=== PATIENT | female | born 1935 | race Caucasian/White ===

== ENCOUNTER 2020-08-26 19:06 | Emergency (ER) | payer MEDICARE, OTHER ==
--- NOTE | 2020-08-26 20:21 | EDM.PDOC ---
ED HPI GENERAL MEDICAL PROBLEM - General Chief Complaint: Lower Extremity Injury/Pain Stated Complaint: FALL, LEFT HIP PAIN Time Seen by Provider: 08/26/20 19:33 Source of Information: Reports: Patient, EMS, Family History Limitations: Reports: No Limitations - History of Present Illness INITIAL COMMENTS - FREE TEXT/NARRATIVE: Patient comes in with left hip injury after falling onto left hip after tripping. Was cooking in her kitchen in her apartment when this happened. Daughter lives next door to her in same building. Denies hitting head/LOC. Denies pain or injury to any other area, including head/neck/back/shoulders/arms/right lower limb. No abdominal pain. Left Hip Pain Score (Numeric/FACES): 4 - Related Data Allergies Allergy/AdvReac Type Severity Reaction Status Date / Time ampicillin Allergy Mild Weakness Verified 08/26/20 19:33 amoxicillin trihydrate Allergy Rash Verified 08/26/20 19:33 [From Augmentin] honey Allergy Difficulty Verified 08/26/20 19:33 Swallowing potassium clavulanate Allergy Rash Verified 08/26/20 19:33 [From Augmentin] Home Meds: Home Meds Potassium Chloride 10 meq PO DAILY 09/10/13 [History] carvediloL [Coreg] 25 mg PO BID 09/10/13 [History] hydroCHLOROthiazide [Hydrochlorothiazide] 25 mg PO DAILY 09/10/13 [History] Acetaminophen [Tylenol Extra Strength] 500 mg PO Q8H PRN 10/13/13 [History] Alendronate Sodium [Fosamax] 70 mg PO WEEKLY 08/26/20 [History] Apixaban [Eliquis] 2.5 mg PO DAILY 08/26/20 [History] Levothyroxine [Synthroid] 50 mcg PO DAILY 08/26/20 [History] Memantine HCl 5 mg PO DAILY 08/26/20 [History] atorvaSTATin [Lipitor] 10 mg PO DAILY 08/26/20 [History] Past Medical History HEENT History: Reports: Hard of Hearing, Impaired Vision Cardiovascular History: Reports: Blood Clots/VTE/DVT, High Cholesterol, Hyper tension Respiratory History: Reports: Asthma Gastrointestinal History: Reports: Chronic Diarrhea Genitourinary History: Reports: UTI, Recurrent [employer] History: Reports: Musculoskeletal History: Reports: Arthritis, Fracture, Osteoarthritis, Osteoporosis Neurological History: Reports: Other (See Below) Other Neuro History: mild cognitive impairment/short term memory loss Endocrine/Metabolic History: Reports: Diabetes, Type II, Hypothyroidism - Infectious Disease History Infectious Disease History: Reports: Measles, Mumps, Rubella - Past Surgical History HEENT Surgical History: Reports: Cataract Surgery Cardiovascular Surgical History: Reports: None Respiratory Surgical History: Reports: None GI Surgical History: Reports: Hernia, Abdominal Female Surgical History: Reports: None Endocrine Surgical History: Reports: None Neurological Surgical History: Reports: None Musculoskeletal Surgical History: Reports: Ganglion Cyst, Shoulder Surgery Dermatological Surgical History: Reports: None Social & Family History - Tobacco Use Tobacco Use Status *Q: Never Tobacco User - Caffeine Use Caffeine Use: Reports: Coffee, Tea - Recreational Drug Use Recreational Drug Use: No - Living Situation & Occupation Living situation: Reports: Review of Systems - Review of Systems Review Of Systems: See Below Eyes: Denies: Blurred Vision, Foreign Body Sensation, Pain, Vision Change Ears: Denies: Pain Nose: Denies: Epistaxis, Pain Mouth/Throat: Denies: Bleeding, Pain Respiratory: Denies: Shortness of Breath, Pleuritic Chest Pain Cardiovascular: Denies: Chest Pain, Lightheadedness, Palpitations, Syncope GI/Abdominal: Denies: Abdominal Pain, Nausea, Vomiting Genitourinary: Reports: Other (no acute changes) Musculoskeletal: Reports: Other (left hip pain) Skin: Denies: Wound Neurological: Reports: Confusion (chronic mild issues/unchanged), Difficulty Walking. Denies: Dizziness, Headache, Syncope, Change in Speech Psychiatric: Reports: Confusion (at baseline) ED EXAM, GENERAL - Physical Exam Exam: See Below Exam Limited By: No Limitations General Appearance: Alert, WD/WN, No Apparent Distress Eye Exam: Bilateral Eye: EOMI, PERRL Ears: Normal External Exam, Normal Canal, Hearing Grossly Normal Nose: No: Nasal Deformity, Nasal Swelling, Nasal Drainage Throat/Mouth: Normal Lips, Normal Voice, No Airway Compromise, Other (some missing teeth) Head: Atraumatic, Normocephalic. No: Facial Swelling, Facial Tenderness, Sinus Tenderness Neck: Normal Inspection, Supple, Non-Tender, Full Range of Motion. No: Tender Lateral, Tender Midline Respiratory/Chest: No Respiratory Distress, Lungs Clear, Normal Breath Sounds, No Accessory Muscle Use, Chest Non-Tender Cardiovascular: Normal Peripheral Pulses, Regular Rate, Rhythm, No Murmur GI/Abdominal: Normal Bowel Sounds, Soft, Non-Tender, No Distention (Female) Exam: Deferred Rectal (Female) Exam: Deferred Back Exam: No: CVA Tenderness (L), CVA Tenderness (R), Muscle Spasm, Paraspinal Tenderness, Vertebral Tenderness Extremities: Normal Capillary Refill, Pedal Edema (mild/bilateral), Other (tender left hip area with shortening/rotation of limb noted). No: Mottled, Pallor, Redness Neurological: Alert, Other (No gross neuro deficits noted. Patient is not able to give accurate date/month/year) Psychiatric: Normal Affect, Normal Mood Skin Exam: Warm, Dry, Intact #1 Interpretation EKG Date: 08/26/20 Time: 19:51 Rhythm: Other (1st degree AV block) Rate (Beats/Min): 78 [place]: Normal P-Wave: Present QRS: Normal ST-T: Normal QT: Normal Comparison: Other: (previous EKG from 2013 showed normal sinus rhythm) Course - Vital Signs Last Recorded V/S: Last Vital Signs Temp 36.7 C 08/26/20 19:38 Pulse 76 08/26/20 20:01 Resp 18 08/26/20 19:38 BP 187/81 H 08/26/20 20:01 Pulse Ox 95 08/26/20 20:01 - Orders/Labs/Meds Orders: Active Orders 24 hr Category Date Time Status EKG Documentation Completion [RC] ASDIRECTED Care 08/26/20 19:35 Ordered Boykin Catheter Insertion [Insert Urinary Catheter] [OM. Care 08/26/20 20:15 Ordered PC] Q24H Urinary Catheter Assessment [RC] ASDIRECTED Care 08/26/20 20:13 Ordered Hip Min 2V or 3V Lt [CR] Stat Exams 08/26/20 19:13 Taken CBC WITH AUTO DIFF [HEME] Stat Lab 08/26/20 19:34 Ordered COMPREHENSIVE METABOLIC PN,CMP [CHEM] Stat Lab 08/26/20 19:34 Ordered MG [MAGNESIUM] [CHEM] Stat Lab 08/26/20 19:34 Ordered UA W/MICROSCOPIC [URIN] Stat Lab 08/26/20 20:13 Ordered - Re-Assessments/Exams Free Text/Narrative Re-Assessment/Exam: 08/26/20 20:40 Xray confirmed left hip fracture. Baseline CBC/Chem/UA ordered. Boykin placed. Labs overall unremarkable. Arrangements made for patient to be transferred to [place] with as accepting MD/Hospitalist. Departure - Departure Time of Disposition: 20:41 Disposition: DC/Tfer to Acute Hospital 02 Condition: Good Clinical Impression: Intertrochanteric fracture, hip - Discharge Information *PRESCRIPTION DRUG MONITORING PROGRAM REVIEWED*: Not Applicable *COPY OF PRESCRIPTION DRUG MONITORING REPORT IN PATIENT TOÑA: Not Applicable Sepsis Event Note (ED) - Evaluation Sepsis Screening Result: No Definite Risk - Focused Exam Vital Signs: Vital Signs Temp Pulse Resp BP Pulse Ox 08/26/20 20:01 76 187/81 H 95 08/26/20 19:38 36.7 C 81 18 191/81 H 99 - My Orders Last 24 Hours: My Active Orders 08/26/20 19:13 Hip Min 2V or 3V Lt [CR] Stat 08/26/20 19:34 CBC WITH AUTO DIFF [HEME] Stat COMPREHENSIVE METABOLIC PN,CMP [CHEM] Stat MG [MAGNESIUM] [CHEM] Stat 08/26/20 19:35 EKG Documentation Completion [RC] ASDIRECTED 08/26/20 20:13 Urinary Catheter Assessment [RC] ASDIRECTED UA W/MICROSCOPIC [URIN] Stat 08/26/20 20:15 Boykin Catheter Insertion [Insert Urinary Catheter] [OM.PC] Q24H - Assessment/Plan Last 24 Hours: My Active Orders 08/26/20 19:13 Hip Min 2V or 3V Lt [CR] Stat 08/26/20 19:34 CBC WITH AUTO DIFF [HEME] Stat COMPREHENSIVE METABOLIC PN,CMP [CHEM] Stat MG [MAGNESIUM] [CHEM] Stat 08/26/20 19:35 EKG Documentation Completion [RC] ASDIRECTED 08/26/20 20:13 Urinary Catheter Assessment [RC] ASDIRECTED UA W/MICROSCOPIC [URIN] Stat 08/26/20 20:15 Boykin Catheter Insertion [Insert Urinary Catheter] [OM.PC] Q24H
[2020-08-26 20:33] LABS: CHLORIDE,CL 104 mmol/L (98-107); SODIUM,NA 141 mmol/L (136-145)
[2020-08-26] MEDS ORDERED: Morphine 2 MG/ML SYRINGE IVPUSH ONE (20:43)
[2020-08-26] MEDS ORDERED: Ondansetron 4 MG/2 ML SDV IVPUSH ONE (20:43)
== END 2020-08-26 21:00 ==
LOC: LL.ED 19:06
DX: S72.142A Displaced intertrochanteric fracture of left femur, initial encounter for closed fracture (principal); E78.00 Pure hypercholesterolemia, unspecified; I10 Essential (primary) hypertension; J45.909 Unspecified asthma, uncomplicated; E11.9 Type 2 diabetes mellitus without complications; E03.9 Hypothyroidism, unspecified; Z88.1 Allergy status to other antibiotic agents; Z91.018 Allergy to other foods; Z88.0 Allergy status to penicillin; Z79.01 Long term (current) use of anticoagulants; Z79.899 Other long term (current) drug therapy; Z86.718 Personal history of other venous thrombosis and embolism; W01.0XXA Fall on same level from slipping, tripping and stumbling without subsequent striking against object, initial encounter
CPT/HCPCS: 36415; 51702; 80053; 81001; 83735; 85025; 93005; 93010; 96374; 96375; 99284; 99285-25; J2270; J2405